=== PATIENT | female | born 1945 | race Caucasian/White ===

== ENCOUNTER 2023-02-25 03:15 | Inpatient (IN) | payer OTHER ==
[~2023-02-25] VITALS: Ht 157.5 cm; Wt 74.4 kg
[2023-02-25 03:15] VITALS: BP_SYST 139
--- NOTE | 2023-02-25 03:24 | NUR ---
ER at bedside examining patient.
[2023-02-25] MEDS ORDERED: METOCLOPRAMIDE HCL 10 MG/2 ML VIAL IVP ONE (03:30)
[2023-02-25] MEDS ORDERED: MECLIZINE HCL 25 MG TABLET (ANITVERT) PO ONE (03:30)
--- NOTE | 2023-02-25 03:46 | NUR ---
Pt bib ambulance-bls from home, assisted to bed 6 via gurney. Pt A&Ox4, able to make needs known. Pt c/o dizziness. Pt states she feels nauseated. Pt denies V/D. Pt denies SOB and chest pain. Pt denies fever and chills. Pt has hx of HTN and DM. Safety measures in place.
[2023-02-25 04:04] LABS: BASOPHILS % (AUTO) 0.4 % (0.0-2.0); EOSINOPHILS # (AUTO) 0.4 K/uL (0.0-0.4); EOSINOPHILS % (AUTO) 3.3 % (0.0-4.0); HEMATOCRIT 32.5 % (36-48); HEMOGLOBIN 10.7 g/dL (12.0-16.0); LYMPHOCYTES # (AUTO) 3.4 K/uL (1.0-5.5); LYMPHOCYTES % (AUTO) 27.4 % (20.5-51.5); MEAN CORPUSCULAR HEMOGLOBIN 27 pg (27-31); MEAN CORPUSCULAR HGB CONC 33 % (32-36); MEAN CORPUSCULAR VOLUME 81 fL (79.0-98.0); MONOCYTES % (AUTO) 8.3 % (1.7-9.3); NEUTROPHILS # (AUTO) 7.5 K/uL (1.8-7.7); NEUTROPHILS % (AUTO) 60.6 % (40.0-70.0); PLATELET COUNT (AUTO) 290 K/uL (130-430); RED BLOOD CELL COUNT(AUTO) 4.01 MIL/uL (4.2-6.2); RED CELL DISTRIBUTION WIDTH 15.6 % (9.0-15.0); WHITE BLOOD COUNT (AUTO) 12.4 K/uL (4.8-10.8)
[2023-02-25 04:19] LABS: ANION GAP 8 (5-15); CALCIUM 9.2 mg/dL (8.4-11.0); CHLORIDE 98 mmol/L (98-107); CREATININE 0.98 mg/dL (0.55-1.30); GLUCOSE 163 mg/dL (70-99); UREA NITROGEN, BLOOD 17 mg/dL (8-21)
[2023-02-25 04:26] LABS: BILIRUBIN,URINE NEGATIVE (NEGATIVE); BLOOD, URINE 2+ (NEGATIVE); COLOR,URINE YELLOW (YELLOW); GLUCOSE,URINE NEGATIVE (NEGATIVE); KETONES,URINE NEGATIVE (NEGATIVE); LEUKOCYTE ESTERASE ,URINE NEGATIVE (NEGATIVE); NITRITE, URINE NEGATIVE (NEGATIVE); PH,URINE 7.5 (5.0-8.0); PROTEIN URINE TRACE (NEGATIVE); UROBILINOGEN,URINE 0.2 (0.2-1.0)
[2023-02-25 04:38] LABS: ALANINE AMINOTRANSFERASE 53 U/L (12-78); ALBUMIN 3.6 g/dL (3.4-4.8); ASPARTATE AMINOTRANSFERASE 40 U/L (10-37); TOTAL BILIRUBIN 0.4 mg/dL (0.0-1.0)
[2023-02-25 04:41] LABS: CLARITY/URINE HAZY (CLEAR)
[2023-02-25] MEDS ORDERED: ASPIRIN 325 MG TABLET PO ONE (04:45)
--- NOTE | 2023-02-25 05:02 | NUR ---
Admit bed requested Patient will be admitted to care of Admitted to Tele unit. Diagnosis Elevated Troponin, Near Syncope Inpatient (Yes or No) yes Observation (Yes or No) no Orientation concerns or request close to nursing station (Yes or No) no Covid Status NA On vent or bipap no Isolation requirements no Needs a sitter no From Home (Yes or if No enter name of facility) yes Requires Dialysis (Yes or No) no Med Rec Completed (Yes of No) yes
[2023-02-25 05:13] LABS: BACTERIA,URINE None Seen /HPF (None Seen); WBC,URINE 0-3 /HPF (0-3)
[2023-02-25] MEDS ORDERED: METF-379 PO ×2 (05:14→07:08)
[2023-02-25] MEDS ORDERED: LOSA50TA28 PO (05:14)
[2023-02-25] MEDS ORDERED: FURO20TA4 PO (05:14)
[2023-02-25] MEDS ORDERED: CARV25TA55 PO (05:14)
[2023-02-25] MEDS ORDERED: ATOR-1 PO (05:14)
[2023-02-25] MEDS ORDERED: GLIP5TAB13 PO ×2 (05:14→07:03)
--- NOTE | 2023-02-25 06:00 | NUR ---
ADMISSION NOTE Received patient from ER via jackelin, received report from ER/ RN. Patient admitted with diagnosis of ELEVATED TROPONIN/DIZZINESS . Patient oriented to hospital routine, call light, toileting and safety-patient verbalized understanding. denies any chest pain , mild dizziness out of bed , able walk BRP with assist.
--- NOTE | 2023-02-25 06:00 | NUR ---
Patient will be admitted to care of Dr Redd. Admitted to Tele unit. Will go to room 132C. Belongings list completed. Complete and up to date summary report printed. SBAR report to be given at bedside with opportunity for questions.
[2023-02-25 06:26] VITALS: BP_SYST 136
[2023-02-25] MEDS ORDERED: FURO40TA5 PO (07:03)
[2023-02-25] MEDS ORDERED: DULA1.5P SQ (07:08)
--- NOTE | 2023-02-25 07:28 | NUR ---
CONSULT CALLED; Y SPOKE WITH Y PALIWAL REASONING; ELEVATED TROPONIN
--- NOTE | 2023-02-25 07:30 | NUR ---
Initial Note: report received from Verito. Patient is awake alert x4. Call light in reach. Bed in the lowest position and side rails x2 up. Bed alarm is on. Assessment is done and vital checked. No pain or discomfort at this time. Will continue patient care.
[2023-02-25 08:00] VITALS: BP_SYST 118
--- NOTE | 2023-02-25 10:16 | NUR ---
CONSULTATION: REASON FOR CONSULT: NEAR SYNCOPE CONSULTING PHYSICIAN: Cha LOPEZ ORDERED BY: Ronit GILES DOCTOR IS AWARE OF CONSULT THROUGH TEXT MESSAGE
[2023-02-25] MEDS ORDERED: ONDANSETRON HCL 4 MG/2 ML VIAL IVP PRN (11:00)
[2023-02-25] MEDS ORDERED: LORazepam 2 MG/ML VIAL IVP PRN (11:00)
[2023-02-25] MEDS ORDERED: ACETAMINOPHEN 325 MG TABLET PO PRN ×2 (11:00→11:45)
[2023-02-25 11:19] VITALS: BP_SYST 134
[2023-02-25] MEDS ORDERED: LOSARTAN POTASSIUM 50 MG TABLET (COZAAR) PO ONE (12:00)
[2023-02-25] MEDS ORDERED: metFORMIN HCL 500 MG TABLET PO ONE (12:00)
[2023-02-25] MEDS ORDERED: FUROSEMIDE 40 MG TABLET PO ONE (12:00)
--- NOTE | 2023-02-25 12:04 | NUR ---
Note: Echocardiogram is done at the bedside.
[2023-02-25] MEDS: INSULIN REGULAR, HUMAN 100 UNITS/ML, 3 ML VIAL (humuLIN R) SUBCUT PRN (12:31)
[2023-02-25] MEDS: NORMAL SALINE 5 ML DISP.SYRIN IVF SCH ×2 (13:05→21:14)
[2023-02-25 15:08] VITALS: BP_SYST 124
[2023-02-25] MEDS ORDERED: metFORMIN HCL 500 MG TABLET PO SCH (18:00)
[2023-02-25] MEDS ORDERED: ATORVASTATIN 20 MG TABLET PO SCH (18:00)
[2023-02-25 20:00] VITALS: BP_SYST 125
--- NOTE | 2023-02-25 20:00 | NUR ---
INITIAL NOTES: pt. awake, alert and oriented. no complaints of dizziness. IV lock on left antecubital. on ekg monitor ans shows sinus rhythm. on fall risk, bed alarm on. call light within reach.
--- NOTE | 2023-02-25 20:04 | NUR ---
Closing Note: Reported to Shonna. Patient is awake alert x4. Call light in reach. Bed in the lowest position and side rails x2 up. No pain or discomfort at this time. Endorse to continue patient care.
[2023-02-25] MEDS: CARVEDILOL 25 MG TABLET (COREG) PO SCH (21:06)
[2023-02-25] MEDS: MECLIZINE HCL 25 MG TABLET (ANITVERT) PO SCH (22:00)
--- NOTE | 2023-02-25 22:00 | NUR ---
NOTES: due medications given. assisted to restroom with walker.
[2023-02-26 02:10] VITALS: BP_SYST 133
--- NOTE | 2023-02-26 03:00 | NUR ---
NOTES: cardiac pattern unchanged. condition observed.
--- NOTE | 2023-02-26 06:30 | NUR ---
CLOSING NOTES; BS checked 117. no complaints. for further assistance. will endorse to incoming shift.
[2023-02-26] MEDS: NORMAL SALINE 5 ML DISP.SYRIN IVF SCH (06:47)
[2023-02-26 08:00] VITALS: BP_SYST 125
[2023-02-26] MEDS ORDERED: LOSARTAN POTASSIUM 50 MG TABLET (COZAAR) PO SCH (09:00)
[2023-02-26] MEDS ORDERED: metFORMIN HCL 500 MG TABLET PO SCH (09:00)
[2023-02-26] MEDS ORDERED: FUROSEMIDE 40 MG TABLET PO SCH (09:00)
[2023-02-26] MEDS: MECLIZINE HCL 25 MG TABLET (ANITVERT) PO SCH (09:46)
[2023-02-26] MEDS: CARVEDILOL 25 MG TABLET (COREG) PO SCH (09:47)
[2023-02-26] MEDS ORDERED: MECL-160 PO (10:34)
[2023-02-26 12:43] VITALS: BP_SYST 139
[2023-02-26 12:50] VITALS: BP_SYST 139
--- NOTE | 2023-02-26 13:00 | NUR ---
Discharge instructions explained to patient. Patient verbalized understanding and signed. Saline lock discontinued. Patient awaiting for son to come take her home via personal vehicle.
[2023-02-26] MEDS: INSULIN REGULAR, HUMAN 100 UNITS/ML, 3 ML VIAL (humuLIN R) SUBCUT PRN (13:07)
--- NOTE | 2023-02-26 13:40 | NUR ---
Patient being escorted out for discharge via wheelchair.
--- NOTE | 2023-03-10 13:34 | NUR ---
[employer] ANALYST made a Post Discharge Follow Up Phone Call to former ptJefe Amor who stated she is doing better and feels good, is taking all her meds as prescribed and did not have any questions or concerns.
== END 2023-02-26 14:00 | disposition home or self-care (01) | DRG 149 ==
LOC: SED 03:15 → STU 04:56 → UNDODISIN 12:00 → STU 17:14
PROVIDERS: ADMIT Preventive Medicine Preventive Medicine/Occupational Environmental Medicine; ATTEND Preventive Medicine Preventive Medicine/Occupational Environmental Medicine
DX: H81.10 Benign paroxysmal vertigo, unspecified ear (principal); E87.1 Hypo-osmolality and hyponatremia; I24.8 Other forms of acute ischemic heart disease; R77.8 Other specified abnormalities of plasma proteins; E78.5 Hyperlipidemia, unspecified; Z96.642 Presence of left artificial hip joint; D64.9 Anemia, unspecified; E11.65 Type 2 diabetes mellitus with hyperglycemia; R74.01 Elevation of levels of liver transaminase levels; I11.9 Hypertensive heart disease without heart failure; Z95.1 Presence of aortocoronary bypass graft; Z88.0 Allergy status to penicillin; Z88.5 Allergy status to narcotic agent
CPT/HCPCS: 36415; 70450-TC; 71045; 76376; 80053; 81000; 84484; 85025; 93005; 93306; 93880; 96374; 99285; G0378; J2765; J8597